=== PATIENT | male | born 1960 | race Caucasian/White ===

== ENCOUNTER 2023-10-27 15:35 | Emergency (ER) | payer OTHER ==
[~2023-10-27] VITALS: Ht 182.9 cm; Wt 77.3 kg
[2023-10-27 16:45] LABS: BASO # 0.02 K/mm3 (0.02-0.10); EOS # 0.02 K/mm3 (0.04-0.40); EOS % 0.2 % (0.0-4.0); HEMATOCRIT 35.5 % (42.0-52.0); HEMOGLOBIN 11.6 g/dL (13.5-18.0); LYMPH# 1.48 K/mm3 (1.50-4.00); MEAN CELL VOLUME 107 fl (78-100); MEAN CORPUSCULAR HEMOGLOBIN 35 pg (27-31); MEAN CORPUSCULAR HGB CONC 33 g/dL (33-37); MEAN PLATELET VOLUME 11.1 fl (7.4-10.4); NEU # 7.41 K/mm3 (1.40-6.50); PLATELET COUNT 60 K/mm3 (130-400); RED BLOOD COUNT 3.32 M/mm3 (4.20-5.60); RED CELL DISTRIBUTION WIDTH 15.6 % (11.5-14.5); WHITE BLOOD COUNT 9.9 K/mm3 (4.8-10.8)
[2023-10-27 16:50] LABS: ALBUMIN 2.9 g/dL (3.4-4.8)
[2023-10-27 16:52] LABS: CALCIUM 8.5 mg/dL (8.3-10.5)
[2023-10-27 16:53] LABS: TOTAL PROTEIN 5.4 g/dL (6.2-8.1)
[2023-10-27 16:55] LABS: TOTAL BILIRUBIN 4.76 mg/dL (0.2-1.2)
[2023-10-27 16:58] LABS: PARTIAL THROMBOPLASTIN TIME 35.6 SECONDS (21.0-32.0)
[2023-10-27 19:15] VITALS: BP 76/44
== END 2023-10-27 19:52 | disposition short-term general hospital (02) ==
LOC: ED 15:35
PROVIDERS: Nurse Practitioner Family
DX: K92.2 Gastrointestinal hemorrhage, unspecified (principal); K74.60 Unspecified cirrhosis of liver; I95.9 Hypotension, unspecified; F17.210 Nicotine dependence, cigarettes, uncomplicated
CPT/HCPCS: C9113; J7030